=== PATIENT | female | born 1985 | race African-American/Black ===

== ENCOUNTER 2019-06-14 22:59 | Emergency (ER) | payer SELFPAY ==
[~2019-06-14] VITALS: Ht 170.2 cm; Wt 74.4 kg
--- NOTE | 2019-06-14 23:22 | NUR ---
BIBSELF WITH DAUGTHER WHO IS CURRENTLY BEING SEEN IN ER, ROOMED IN WITH DAUGTHER IN ER BED 17. AAOX4. NO RESP DISTRESS NOTED, BREATHING EVEN AND UNLABORED. AMBULATORY. C/O MID LOWER EXTENDING TO LLQ THEN TO THE BACK. PT REPORTS THAT THE PAIN HAS BEEN GOING ON FOR A WHILE BUT WORST TODAY. PT RATES PAIN 7/10 SHARP INTERMITENT PAIN. PT REPORTS HX OF FIBROID AND HX OF L SALPINGECTOMY D/T A RUPTURED ECTOPIC . WAS AT BEDSIDE FOR EVAL. AWAITING ORDERS.
--- NOTE | 2019-06-14 23:51 | NUR ---
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
[2019-06-14 23:59] LABS: BASOPHILS # (AUTO) 0.1 /CMM (0.0-0.2); BASOPHILS % (AUTO) 0.7 % (0.0-2.0); EOSINOPHILS % (AUTO) 1.2 % (0.0-6.0); HEMATOCRIT 36 % (33-45); HEMOGLOBIN 11.5 g/dL (11.5-14.8); LYMPHOCYTES # (AUTO) 2.8 /CMM (0.8-4.8); LYMPHOCYTES % (AUTO) 27.8 % (20.0-44.0); MEAN CORPUSCULAR HGB CONC 32 g/dl (31.0-36.0); MEAN CORPUSCULAR VOLUME 91 fL (82-100); MONOCYTES # (AUTO) 0.8 /CMM (0.1-1.30); MONOCYTES % (AUTO) 7.7 % (2.0-12.0); NEUTROPHILS # (AUTO) 6.2 /CMM (1.8-8.9); NEUTROPHILS % (AUTO) 62.6 % (43.0-81.0); PLATELET COUNT (AUTO) 423 /CMM (150-450); RED BLOOD CELL COUNT(AUTO) 3.93 MIL/uL (4.0-5.2)
[2019-06-15 00:04] LABS: APPEARANCE,URINE Clear (CLEAR); BILIRUBIN,URINE Negative (NEGATIVE); BLOOD, URINE Small Ery/uL (NEGATIVE); COLOR,URINE Yellow (YELLOW); KETONES,URINE Trace (NEGATIVE); LEUKOCYTE ESTERASE ,URINE Negative (NEGATIVE); NITRITE, URINE Negative (NEGATIVE); PROTEIN,URINE Negative (NEGATIVE); UGLUCOSE Negative (NEGATIVE)
[2019-06-15 00:10] LABS: CALCIUM, SERUM 9.1 mg/dL (8.5-10.1); CREATININE 0.9 mg/dL (0.6-1.3); POTASSIUM 3.8 mmol/L (3.5-5.1)
[2019-06-15 00:23] LABS: ALBUMIN 3.8 g/dL (3.4-5.0); BILIRUBIN,DIRECT 0.1 mg/dL (0.0-0.2); BILIRUBIN,TOTAL 0.2 mg/dL (0.2-1.0)
[2019-06-15 01:49] LABS: BACTERIA,URINE Few /HPF (None Seen); MUCUS,URINE Few /LPF (None Seen); SQUAMOUS EPITHELIAL CELL,UR Few /HPF (None Seen)
--- NOTE | 2019-06-15 01:56 | NUR ---
Patient discharged to home in stable condition. Written and verbal after care instructions given. Patient verbalizes understanding of instruction. Pt ambulatory with a steady gait
[2019-06-15 01:57] VITALS: BP 113/64
== END 2019-06-15 01:58 | disposition home or self-care (01) ==
LOC: ER 23:07
DX: R10.32 Left lower quadrant pain (principal); D36.7 Benign neoplasm of other specified sites
CPT/HCPCS: 36415; 76856-TC; 80048-TC; 80076-TC; 81000-TC; 84702-TC; 85025-TC; 87491; 87591

== ENCOUNTER 2019-07-27 00:14 | Emergency (ER) | payer SELFPAY ==
[~2019-07-27] VITALS: Ht 170.2 cm; Wt 72.1 kg
--- NOTE | 2019-07-27 00:25 | NUR ---
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 TO ER BED 3
[2019-07-27] MEDS ORDERED: KETOROLAC TROMETHAMINE INJ 60 MG/2 ML VIAL IM ONE ×2 (00:50→01:00)
--- NOTE | 2019-07-27 01:21 | NUR ---
PATIENT TAKEN TO RADIOLOGY
[2019-07-27 02:13] VITALS: BP 106/67
== END 2019-07-27 02:14 | disposition home or self-care (01) ==
LOC: ER 00:17
DX: M54.12 Radiculopathy, cervical region (principal); M62.838 Other muscle spasm; Z98.890 Other specified postprocedural states
CPT/HCPCS: 72050; 96372; 99283; J1885